=== PATIENT | female | born 1955 | race Caucasian/White ===

== ENCOUNTER → 2024-11-20 | Outpatient (REF) | payer OTHER | LOC: M SFHCRHEU 14:30 | PROVIDERS: ATTEND Internal Medicine | DX: Z86.718 Personal history of other venous thrombosis and embolism (principal); M25.50 Pain in unspecified joint ==

== ENCOUNTER → 2024-11-23 | Outpatient (CLI) | payer OTHER | LOC: M WHC 12:06 | PROVIDERS: ATTEND Internal Medicine | DX: Z78.0 Asymptomatic menopausal state (principal); Z53.9 Procedure and treatment not carried out, unspecified reason ==